=== PATIENT | male | born 1950 | race Caucasian/White ===

== ENCOUNTER 2018-03-05 19:41 | Emergency (ER) | payer SELFPAY, OTHER ==
[2018-03-05] MEDS: DERMABOND TOPICAL SKIN ADHESIVE TOP (20:23)
== END 2018-03-05 21:06 | disposition home or self-care (01) ==
LOC: M ED 19:41
DX: L85.3 Xerosis cutis (principal); F42.4 Excoriation (skin-picking) disorder; I83.892 Varicose veins of left lower extremity with other complications
CPT/HCPCS: 99283